=== PATIENT | female | born 1950 | race Caucasian/White ===

== ENCOUNTER 2017-11-07 15:03 | Inpatient (IN) | payer MEDICARE, OTHER ==
[~2017-11-07] VITALS: Ht 165.1 cm; Wt 120.7 kg
[2017-11-07] MEDS ORDERED: NORVASC5 MG PO (15:37)
[2017-11-07] MEDS ORDERED: ASA5UEC PO (15:38)
[2017-11-07] MEDS ORDERED: CALCIUM 600 +1 EAC1 PO (15:39)
[2017-11-07] MEDS ORDERED: CENTRUM WOMEN1 EACH PO (15:40)
[2017-11-07] MEDS ORDERED: CINNAMON500 MG PO (15:43)
[2017-11-07] MEDS ORDERED: LISINOPRIL10 MG PO (15:45)
[2017-11-07] MEDS ORDERED: METFORMIN HCL500 MG PO (15:46)
[2017-11-07] MEDS ORDERED: NABUMETONE 750750 M1 PO (15:48)
[2017-11-07] MEDS ORDERED: OXYCODONE HCL 55 MG PO (15:49)
[2017-11-07] MEDS ORDERED: VITAMIN D1000 UNI1 PO (15:51)
--- NOTE | 2017-11-07 18:59 | NUR ---
PT ADMITTED AT 1815, PT ALERT AND ORIENTED, PT TRANSFERS WITH ASSIST OF 1, GB AND WALKER, PT COMPLAINS OF PAIN IN RIGHT KNEE, DENIES NAUSEA, PT HAS HAD NO BM FOR 7 DAYS, PASSING FLATUS, WILL OBTAIN FURTHER ORDERS FOR BOWELS, CALL PLACED TO DR BERUMEN. ASSESSMENT COMPLETE, WILL CONTINUE TO MONITOR.
[2017-11-07 19:05] VITALS: BP 127/79
[2017-11-08 04:06] LABS: HEMATOCRIT 31.8 % (37.0-47.0); HEMOGLOBIN 10.7 gm/dL (12.0-15.0); MCH 30.8 pg (26.0-34.0); MCHC 33.7 g/dL (28.0-37.0); MCV 91.4 fL (80.0-100.0); RBC 3.48 mil/uL (4.20-5.00); RDW-CV 13.9 % (10.5-14.5); WBC 11.7 thou/uL (4.0-11.0)
[2017-11-08 04:23] LABS: CALCIUM 9.2 mg/dL (8.5-10.1); CREATININE 0.9 mg/dL (0.6-1.3); POTASSIUM 4.2 mmol/L (3.5-5.1)
--- NOTE | 2017-11-08 05:27 | NUR ---
ASSUMED CARE OF PT AT 1900 PT ALERT AND ORIENTED X4 VS AND ASSESSMENT STABLE. DRSG TO R KNEE CDI POSITIVE CMS CHECK. PT 1 MIN ASSIST TO COMMODE. PT HAD PAIN MEDS TWICE THEN SLEPT THROUGH THE NIGHT. WILL CONTINUE PALN OF CARE.
[2017-11-08 08:35] VITALS: BP 112/67
[2017-11-08 20:00] VITALS: BP 135/70
--- NOTE | 2017-11-09 05:19 | NUR ---
ASSUMED CARES AT 1920. PT ALERT AND ORIENTED. PLEASANT. S/P RIGHT TOTAL KNEE. DRESSING TO KNEE IS INTACT. ICE PACKS APPLIED PER PT REQUEST. PAIN MEDS GIVEN WELL. TAKES PILLS WHOLE WITHOUT ISSUES. DISCUSSED NEED FOR LAXATIVE. PT ONLY AGREEABLE TO TAKING PRUNE JUICE. PT DOES NOTE PASSING GAS. SHE IS A MOD ASSIST WITH GAIT BELT AND WALKER. NEEDS ASSIST WITH LEGS INTO BED. UP TO BATHROOM. DOES OWN CARES. PT SAYS THAT DID USE CPM AT [facility]. PT AGREEABLE TO RESTART THIS AM. USED CALL LIGHT APPROPRIATELY. BED ALARM ON.
[2017-11-09 08:25] VITALS: BP 140/72
--- NOTE | 2017-11-09 16:30 | NUR ---
AN ASSESSMENT AND VITAL SIGNS COMPLETED DOCUMENTED. PT WAS ABLE TO COMPLETE HER ADL'S THIS AM WITH STAFF SET UP. CPM 0- 60 USED TWICE TODAY, TOLERATED WELL. PT WAS ABLE TO HAVE A LARGE BM AFTER SUPPOSITORY, WILL CONTINUE COLACE AND MIRALAX FOR FUTURE REGULARITY. PAIN HAS BEEN WELL CONTROLLED WITH TYLENOL AND OXYCODONE. FALL PRECAUTIONS AND HOURLY ROUNDING CONTINUE.
[2017-11-09 20:00] VITALS: BP 155/68
--- NOTE | 2017-11-10 05:14 | NUR ---
ASSUMED CARES AT 1915. PT ALERT AND ORIENTED. PLEASANT AND COOPERTATIVE. S/P RIGHT TOTAL KNEE SURGERY. DRESSING TO KNEE INTACT. PAIN MEDS GIVEN NEEDED. ICE PACKS TO RIGHT KNEE. SHE IS A MOD ASSIST WITH GAIT BELT AND WALKER. AT TIMES NEEDS ASSIST WITH LEGS INTO BED. UP TO THE BATHROOM. DOES OWN CARES. SLEPT OFF AND ON. CALL LIGHT IN REACH AND BED ALARM ON.
[2017-11-10 08:28] VITALS: BP 121/71
--- NOTE | 2017-11-10 11:15 | NUR ---
Nutrition: Consult received. Pt admitted Rehab s/p RTK. Pt stated she follows a CHO controlled diet at home. She stated her BG usually runs 110-115. It is running 128-175 in hospital. RX: metformin, MVI. +BM yday. Wt: 266#. H/o smoking. CPAP, OBE, HTN. Pt denied need for nutrition education. She stated she will not eat sugar substitute and wants Splenda instead. RD asked kitchen for this, but we do not carry anything but the pink substitute. Consider low risk. Will follow weekly.
--- NOTE | 2017-11-10 16:29 | NUR ---
SW met with pt to complete initial assessment, introduce self, and SW role. Pt was alert, oriented, flat but pleasant. Pt lives at home alone. Pt has a dtr who is supportive but works. Pt does not have any DME. Pt does not have any history with HH or SNF. Pt may need a rolling walker ordered to be delivered prior to dc. SW oriented pt to rehab and discussed team conference on Wednesdays. SW to continue to follow to assist with safe dc planning.
--- NOTE | 2017-11-10 18:28 | NUR ---
PT HAS WORKED WITH THERAPIES AND AMBULATES WITH WALKER,GAITBELT AND MIN ASSIST OF 1. DRESSING DRY AND INTACT TO RT.KNEE. PAIN CONTROLLED WITH PO MEDICATION AND ICE PACKS.PT USES CPM 0-75 AND TOLERATES WELL. PT ALERT AND ORIENTATED AND PROGRESSES TOWARDS GOALS. HOURLY ROUNDING CONTINUES.
[2017-11-10 20:39] VITALS: BP 157/68
--- NOTE | 2017-11-11 00:53 | NUR ---
AT 2345, PT C/O INCREASED PAIN TO RT KNEE AND DIFFICULTY WITH SLEEP DESPITE ALRADY TAKEN BENADRYL. IT WAS TOO SOON FOR NEXT DOSE OF OXY IR. PAGED DR CUI. OKAY FOR OXY IR 10 MG NOW AND 1 MORE ADDITIONAL DOSE TONIGHT IF NEEDED. ALSO OBTAINED ORDER FOR MELATONIN 5 MG PO PRN HS. PT STATED THAT PAIN HAD LESSENED SOME. ICE PACK TO RIGHT KNEE. WILL CONTINUE TO MONITOR.
--- NOTE | 2017-11-11 06:54 | NUR ---
PT SLEPT BETTER REST OF THE NIGHT. SHE IS A MIN ASSIST WITH GAIT BELT AND WALKER. UP TO BATHROOM. DOES OWN CARES. DRESSING TO RIGHT KNEE INTACT. ICE PACKS TO KNEE. CPM STARTED THIS AM RUNNING FROM 0-75 DEGREES. ALL NEEDS MET. CALL LIGHT IN REACH.
[2017-11-11 07:00] VITALS: BP 149/73
--- NOTE | 2017-11-11 13:22 | NUR ---
PT WORKING WITH THERAPY AND BEGAN VOMITING. BP STABLE. BG 169. DR NOTIFIED. ORDERS RECEIVED
--- NOTE | 2017-11-11 14:47 | NUR ---
ORACIO called and spoke with pt dtr Neli at [phone]. Neli confirmed that she does work during the day but would check on her mother every evening. Pt dtr concerned if pt might be a fall risk and mentioned suggesting to her mother a life alert. Pt will need rolling walker ordered and HH follow up services and ORACIO explained to pt dtr that SW would assist in arranging DME and HH. ORACIO discussed team conference tomorrow and that ORACIO would follow up to provide update to pt dtr as well.
--- NOTE | 2017-11-11 18:28 | NUR ---
PT PARTICIPATES IN ALL THERAPIES. PAIN WELL CONTROLLED WITH PO MEDS. PT TOLERATES CPM. GOOD APPETITE AND TOLERATES PO WELL. PT UP TO BR WITH WALKER AND MINIMAL ASSIST
[2017-11-11 20:10] VITALS: BP 156/75
[2017-11-12 08:06] VITALS: BP 154/77
--- NOTE | 2017-11-12 15:22 | NUR ---
AM ASSESSMENT AND VITAL SIGNS COMPLETED DOCUMENTED. PT HAS COMPLETED HER AM THERAPY SESSIONS, PRN MEDICATION GIVEN WITH GOOD RESULTS. ICE PACKS SWITCHED OUT FREQUENTLY. DRESSING CHANGED TO RIGHT KNEE, INCISION IS WELL APPROXIMATED WITH MANDEEP INTACT. THE SURROUNDING AREA IS RED AND PURPLE, COOL TO TOUCH. HOURLY ROUNDING AND FALL PRECAUTIONS IN PLACE.
--- NOTE | 2017-11-12 17:45 | NUR ---
Following for d/c planning needs. Reviewed chart and spoke with pt re: team conference recommendations. Plan is for pt to return home on Friday, 11/18. Will remain available to assist as needed. Spoke with dtr and she said she will provide transportation for pt home at 1700 on Friday.
[2017-11-12 19:30] VITALS: BP 156/78
--- NOTE | 2017-11-13 06:13 | NUR ---
ASSESSMENT COMPLETE. PT SLEPT MOST OF THE NIGHT. PRN PAIN MEDICATION GIVEN FOR RIGHT KNEE PAIN. INCISION TO RIGHT KNEE C/D/ CHANGED 11/12. PT HAS ICE PACK IN PLACE. PT REFUSED CPM AT HS. FOOT SCD'D IN PLACE. PT IS UP ONE ASSIST WITH WALKER AND GAIT BELT. PT TAKES PILLS WITHOUT DIFFICULTY. PT TURNS SELF IN BED DURING THE NIGHT. SEE ASSESSMENT AND VITALS FOR OTHER DETAILS. CALL LIGHT WITHIN REACH, WILL CONTINUE PLAN OF CARE
[2017-11-13 08:39] VITALS: BP 146/71
--- NOTE | 2017-11-13 19:53 | NUR ---
ASSUMED CARE THIS AM. DISCOMFORT TO RIGHT KNEE MANAGED WELL WITH ORAL MEDICATION EVERY FOUR HOURS, ICE PACK TO RIGHT KNEE. A/O, COMPLIANT WITH CARE, D/C PLAN TO RETURN TO HOME WHEN REHAB IS COMPLETE. CALL LIGHT IN REACH, CONT POC.
[2017-11-13 20:00] VITALS: BP 136/63
--- NOTE | 2017-11-14 05:16 | NUR ---
PATIENT SLEPT WELL DURING THIS SHIFT. PT UP TO BATHROOM WITH USE OF WALKER AND STANDBY; PT HAS STEADY GAIT. PT REQUESTED PAIN MEDICATION X2. PT WITH ISLAND DRESSING ON RT KNEE. PT USED CPM MACHINE FOR APPROX 15 MINUTES THEN WANTED IT REMOVED. PT WITH BLOOD SUGAR AT 2100 OF 165; NO TX ORDERED. FREQUENTLY USED ITEMS AND CALL LIGHT WITHIN REACH. SIDERAILS UPX2. WILL CONTINUE TO MONITOR.
[2017-11-14 07:00] VITALS: BP 148/71
--- NOTE | 2017-11-14 14:21 | NUR ---
ORACIO spoke with pt about dc planning for Saturday 11/18. ORACIO ordered rolling walker through [facility] and spoke with Donna at [phone] fax [phone]; oDnna approved and ORACIO faxed completed order for RW. ORACIO discussed HH care options for HH to follow at dc. ORACIO provided list of options and pt wants to discuss with her dtr and then ORACIO will follow up on Friday to discuss pt choice and ORACIO will arrange HH prior to pt dc. SW to continue to follow to assist with safe dc plans.
--- NOTE | 2017-11-14 18:36 | NUR ---
RESUMED CARE THIS AM. A/O, DISCOMFORT MANAGED WELL WITH MEDICATION AND ICE PACKS, SIMÓN CPM TO RIGHT KNEE X 2 SESSIONS TODAY, INCREASING FLEXION TO 87 DEGREES. COMPLIANT WITH CARE, EAGER TO DISCHARGE TO HOME ON FRIDAY. CALL LIGHT IN REACH, CONT POC.
[2017-11-14 20:32] VITALS: BP 154/76
--- NOTE | 2017-11-15 06:12 | NUR ---
PT SLEPT AT INTERVALS DURING THE NIGHT, UP BY SELF AROUND THE ROOM WITH WALKER. RIGHT KNEE DRSG REMAINS C/D/I, ICE PACKS CHANGED OUT MULTIPLE TIMES PER REQUEST, PRN PAIN MEDS GIVEN PER REQUEST, CALL LIGHT IN REACH, WILL CONTINUE TO MONITOR
[2017-11-15 07:30] VITALS: BP 142/69
--- NOTE | 2017-11-15 17:17 | NUR ---
ASSUMMED CARE OF PT AT 0730, PT ALERT AND ORIENTED, SOME CONFUSION ABOUT IF PT WAS TO BE MOD I IN ROOM, ORDER CLARIFIED PER DR BERUMEN AND PT CAN BE MOD I IN ROOM, PT COMPLAINS OF PAIN IN RIGHT KNEE, MEDICATED PER ORDER FOR PAIN, IN CPM X 2 THIS SHIFT, TOLERATES WELL, ICE PACKS ON THRUOUT SHIFT, TAKING FOOD AND FLUIDS WELL, DRESSING TO RIGHT KNEE, C/D/I, PARTICIPATED IN ALL THERAPIES, HOURLY ROUNDING COMPLETED, ASSESSMENT COMPLETE, WILL COTNINUE TO MONITOR.
[2017-11-15 20:39] VITALS: BP 152/77
--- NOTE | 2017-11-15 21:00 | NUR ---
SITTING IN RECLINER WITH LEGS ELEVATED WATCHING TV. MODIFIED INDEPENDENT IN ROOM WITH WALKER. STATES RIGHT KNEE PAIN AT A "4". WANTS TO WAIT UNTIL 2200 FOR PAIN MEDS. TOOK MEDS WHOLE WITH WATER. SNACK PROVIDED.
--- NOTE | 2017-11-16 05:47 | NUR ---
UP X ONE AT 0155 TO THE BATHROOM TO VOID. PAIN MEDS GIVEN AT 0159 PER REQUEST FOR C/O RIGHT KNEE PAIN RATED "4". CONTINUES TO BE MODIFIED INDEPENDENT IN ROOM WITH WALKER. HOURLY ROUNDING IN PROGRESS.
[2017-11-16 08:00] VITALS: BP 154/78
--- NOTE | 2017-11-16 16:37 | NUR ---
ASSUMMED CARE OF PT AT 0730, PT ALERT AND ORIENTED, PT MOD I IN ROOM, PT COMPLAINS OF KNEE PAIN, MEDICATED PER ORDER WITH GD RELIEF, PT STATES SHE FEELS LONELY AND DEPRESSED TODAY, HOPING HER DAUGHTER WILL VISIT LATER, PT REFUSED TO BATHE THIS SHIFT AND WANTED TO STAY IN NIGHT GOWN ALL SHIFT, PT REFUSED TO GO TO [facility] FOR LUNCH, PT TAKING FOOD AND FLUIDS WELL, PT DID DO GROOMING ACTIVITIES THIS AM, PT IN CPM AND TOLERATES WELL, UP IN CHAIR ALL AM, RESTED IN BED THIS PM, ICE TO KNEE AT INTERVALS DURING SHIFT, DRESSING TO INCISION C/D/I, HOURLY ROUNDING COMPLETED, ASSESSMENT COMPLETE, WILL CONTINUE TO MONITOR.
[2017-11-16 19:00] VITALS: BP 141/73
--- NOTE | 2017-11-16 19:30 | NUR ---
ASSISTED WITH BEING PLACED IN CPM. PATIENT DEPRESSED. FRESH ICE APPLIED TO KNEE. SNACK PROVIDED. PT DOESN'T WANT TO TAKE PAIN MEDS UNTIL LATER. STATES RIGHT KNEE PAIN AT A "4". MODIFIED INDEPENDENT IN ROOM WITH A WALKER. PATIENT STATES HAD A SMALL BM AFTER ASKING IF SHE WANTED TO TAKE SOME MOM AND/OR PRUNE JUICE.
--- NOTE | 2017-11-17 05:44 | NUR ---
PAIN MEDS GIVEN AT 0236 FOR C/O RIGHT KNEE PAIN RATED "4" WITH RELIEF. NEW ICE APPLIED TO RIGHT KNEE PER REQUEST. REMAINS MODIFIED INDEPENDENT IN ROOM WITH WALKER. HOURLY ROUNDING IN PROGRESS.
[2017-11-17 08:07] VITALS: BP 156/70
--- NOTE | 2017-11-17 11:55 | NUR ---
SW met with pt to follow up about dc planning for tomorrow, Friday, home alone with HH services to follow. Pt preference for HH services is [facility]; ORACIO called and spoke with Tara with intake and discussed referral, Tara accepted referral and SW to fax final orders, med list, referral tomorrow upon dc. ORACIO called and spoke with Janell who is to issue pt a RW tomorrow morning; ORACIO informed pt. No other needs or concerns expressed at this time.
[2017-11-17 11:58] VITALS: BP 148/79; BP 156/70
--- NOTE | 2017-11-17 18:06 | NUR ---
UP AD SAI, SIMÓN THERAPIES AND CPM WELL, DISCOMFORT MANAGED WITH MEDICATION EFFECTIVELY. PATIENT BATHED, EAGER FOR DISCHARGE TOMORROW. F/U APPT SCHED FOR TOMORROW @ 8180. CALL LIGHT IN REACH, CONT POC.
--- NOTE | 2017-11-17 20:45 | NUR ---
ASSISTED WITH PLACING IN CPM MACHINE. FRESH ICE PACK PROVIDED FOR RIGHT KNEE. SNACK PROVIDED. MODIFIED INDEPENDENT IN ROOM WITH A WALKER.
[2017-11-17 21:22] VITALS: BP 133/71
--- NOTE | 2017-11-18 05:52 | NUR ---
UP X ONE AT 0200 TO THE BATHROOM. GIVEN PAIN MEDS AT THAT TIME FOR C/O RIGHT KNEE PAIN RATED "4". KEEPS ICE PACK TO RIGHT KNEE. FRESH ICE PACKS PROVIDED AT 0200. MODIFIED INDEPENDENT IN ROOM WITH WALKER. PLAN IS FOR PATIENT TO BE DISCHARGED BY NOON SO PATIENT CAN GET TO A DOCTOR'S APPOINTMENT IN [place]. HOURLY ROUNDING IN PROGRESS.
[2017-11-18 07:57] VITALS: BP 148/79
--- NOTE | 2017-11-18 12:43 | NUR ---
PT DISCHARGED TO HOME PER CAR WITH ALL BELINGINGS AND FRIEND. PT GOING TO DOCTOR APPOINTMENT AFTER DISCHARGE. PRN FOR RT.KNEE PAIN GIVEN WITH GOOD EFFECT. DRESSING DRY AND INTACT TO RT.KNEE. PT USES ICE PACK DESIRED. PT REMAINS ALERT AND ORIENTATED.
--- NOTE | 2017-11-18 13:38 | NUR ---
Pt dc home alone today, Saturday 11/18. SW faxed final orders and med list to [facility] to begin services on Friday. RW was delivered prior to pt dc. No other dc needs.
--- NOTE | 2017-12-09 15:21 | H ---
[address] [address] HISTORY AND PHYSICAL Name: RACHELLUZ SHANTALRYDERAMENA Room: [address] IN M.R.#: [id number] Admission: 11/07/17 Attend Phys: Dimple Hutchinson DO Discharge: 11/18/17 Date of : 46 Report #: [id number] THIS REPORT FOR: //name// CC: Dimple Mohamud HISTORY OF PRESENT ILLNESS: This is a 66-year-old female admitted to inpatient rehabilitation to facilitate safe discharge home, status post acute hospitalization for right total knee arthroplasty secondary to osteoarthritis with multiple medical comorbidities including uncontrolled diabetes with random glucose of 162, heart murmur, osteoarthritis, obstructive sleep apnea and congestive heart failure, who had difficulty with pain control, dizziness and syncopal episode in the postoperative period. She also had hypoxia with cardiomegaly showing up on chest x-ray. She was initially on O2, but has now weaned off that and pain is more controlled. She is participating in physical and occupational therapy and is ready for acute inpatient rehabilitation to facilitate safe discharge home where she lives at home with supervision. Her daughter can help her. No significant changes since the preadmission screening. Previous level of function was independent with activities of daily living. Current level of function is standby assistance to minimum assistance of 1-2, ambulating with front-wheeled walker 10 feet x 2, with her comprehension, expression, social interaction, problem solving and memory within functional limits. Estimated length of stay is 10-12 days with discharge disposition to the home setting where she again does have some supervision and assistance if needed. No significant changes since the preadmission screening. PAST MEDICAL HISTORY: Hypertension, uncontrolled diabetes, heart murmur, osteoarthritis, obstructive sleep apnea, tobacco use, congestive heart failure, cardiomegaly, pulmonary congestion. PAST SURGICAL HISTORY: Appendectomy, knee arthroscopy, D and C, , cholecystectomy and a CTR. ALLERGIES: PENICILLIN. SOCIAL HISTORY: Former smoker, no alcohol or illicit drug use. FAMILY HISTORY: Heart disease. MEDICATIONS: Reviewed, reconciled by myself and are available in the MAR. REVIEW OF SYSTEMS: A 14-point review of systems is done and is negative except as mentioned in the HPI, specifically no fever, chest pain, shortness of breath, abdominal pain or distention, change in bowel or change in bladder. Skin is warm and dry. PHYSICAL EXAMINATION: [place] [address] HISTORY AND PHYSICAL Name: AMENA VALENCIA Room: [address]#: [id number] Admission: 11/07/17 Attend Phys: Dimple Hutchinson DO Discharge: 11/18/17 Date of : 46 Report #: [id number] GENERAL: Alert, oriented, no apparent distress. VITAL SIGNS: Reviewed and are stable. HEENT: Head atraumatic, normocephalic. Pupils equal, round, reactive. ABDOMEN: Soft, nontender, nondistended. NEUROLOGIC: Cranial nerves 2-12 are grossly intact. No focal neuro deficits, 5/5 strength in bilateral upper and lower extremities. SKIN: Warm and dry. No rashes or lesions noted. Incision is freshly dressed, not visualized at this time. ASSESSMENT: 1. Status post right total knee arthroplasty on 11/03/2017 with some complications in the postoperative period including uncontrolled pain, dizziness, syncopal episode. 2. Multiple medical comorbidities including uncontrolled diabetes, hypertension, heart murmur, osteoarthritis, and congestive heart failure. 3. Alterations in mobility and activities of daily living. PLAN: 1. Admission to inpatient rehabilitation. 2. PT, OT, Case Management, Nursing and HIMS to make evaluations and recommendations. 3. Regular diet. 4. CBC and BMP in the a.m. 5. Not to remove dressing until seen by physician. 6. Follow up with Dr. Rose on 11/18/2017. 7. Plan of care is pending and we will team her weekly. <ELECTRONICALLY SIGNED> By: Dimple Hutchinson DO 12/09/17 1521 [id number] Hutchinson DO /nt
--- NOTE | 2017-12-09 15:21 | D ---
[address] [address] DISCHARGE SUMMARY Name: URIEL MURGUIARYDERAMENA Room: [address] IN M.R.#: [id number] Admission: 11/07/17 Attend Phys: Dimple Hutcihnson DO Discharge: 11/18/17 Date of : 46 Report #: [id number] THIS REPORT FOR: //name// CC: Dimple Mohamud DATE OF SERVICE: 11/18/2017 DISCHARGE DIAGNOSES: Post right total knee arthroplasty secondary to osteoarthritis with multiple medical comorbidities. DISCHARGE DISPOSITION: To home. The patient did have postoperative congestive heart failure, difficulty with pain control, dizziness with a syncopal episode. She was followed by Cardiology. She had a good rehab stay once pain was well controlled. She also progressed to a modified independent level of care in her room in the transitional living apartment with no significant issues. She did have discharge prescription for her pain medication as well as aspirin. Discharged to home with home health, PT, OT and nursing. Follow with her orthopedic surgeon today, primary care physician within 1-2 weeks. Fall precautions and utilization of a front-wheeled walker for community ambulation. MEDICATIONS: Reviewed, reconciled by myself and are available in the MAR. DISCHARGE PHYSICAL EXAMINATION: GENERAL: Alert, oriented, in no apparent distress. VITAL SIGNS: Reviewed and are stable. HEENT: Head atraumatic, normocephalic. Pupils equal, round, reactive. ABDOMEN: Soft, nontender, nondistended. NEUROLOGIC: Cranial nerves 2-12 are grossly intact. No focal neuro deficits, 5/5 strength in bilateral upper and lower extremities. SKIN: Warm and dry. No rashes or lesions noted. <ELECTRONICALLY SIGNED> By: Dimple Hutchinson DO 12/09/17 1521 [id number] Hutchinson DO /nt
== END 2017-11-18 12:46 | disposition home health service (06) | DRG 554 ==
LOC: M.REH 15:03
PROVIDERS: ADMIT Physical Medicine & Rehabilitation
DX: M17.11 Unilateral primary osteoarthritis, right knee (principal); D62 Acute posthemorrhagic anemia; Z68.41 Body mass index [BMI] 40.0-44.9, adult; E11.65 Type 2 diabetes mellitus with hyperglycemia; G47.33 Obstructive sleep apnea (adult) (pediatric); I50.9 Heart failure, unspecified; I11.0 Hypertensive heart disease with heart failure; E66.01 Morbid (severe) obesity due to excess calories; Z96.651 Presence of right artificial knee joint; R09.02 Hypoxemia; R26.9 Unspecified abnormalities of gait and mobility; G89.18 Other acute postprocedural pain; F32.9 Major depressive disorder, single episode, unspecified; Z90.49 Acquired absence of other specified parts of digestive tract; Z88.0 Allergy status to penicillin; Z79.82 Long term (current) use of aspirin; Z79.899 Other long term (current) drug therapy; Z91.19 Patient's noncompliance with other medical treatment and regimen; Z71.6 Tobacco abuse counseling; Z72.0 Tobacco use; Z82.49 Family history of ischemic heart disease and other diseases of the circulatory system